=== PATIENT | male | born 1990 | race Caucasian/White ===

== ENCOUNTER 2017-11-19 18:24 | Emergency (ER) | payer BC ==
[2017-11-19 18:24] VITALS: BP 104/61
--- NOTE | 2017-11-19 19:07 | ED.ADGEN ---
Past History Past Medical History: Seizure, Other Adult General Chief Complaint Chief Complaint " His brother stated he had another grand mal seizure... he had the flu or a cold. .. probably got dehydrated.." ( Mother, Father) "I ve been feeling under the weather.. cold the last few days..." HPI HPI Patient is a 27 year old male who presents with above hx and complaints seizure disorder . Pt. had a onset of a tonic-clonic seizure that lasted few minutes at home. No prolonged post ictal phase. Patient reportedly near his baseline per his parents. Patient has had seizures since age 17. No etiology ever found with multiple CTs and MRIs and workup. Patient is to reportedly on Depakote for seizure suppression. Patient works as a cook at [employer]. Patient denies any recent drug use. Patient does report upper respiratory congestion and rhinorrhea and generalized malaise from cold symptoms. Please episode of seizures as always been associated with dehydration. Patient denies any trauma. Patient denies any travel. Patient denies any specific ill contacts. Patient did not get a flu vaccination this year. Patient does not follow regularly with her primary care. Reportedly patient has not had a seizure in over 6-8 months. Most seizures are occur at bedtime or while he is sleeping. Patient does have history of previous IV drug use. Patient currently denies current illicit drug usage Review of Systems Review of Systems Constitutional: Subjective history fever or chills [] Eyes: Denies change in visual acuity, redness, or eye pain [] HENT: Denies nasal congestion or sore throat [] Respiratory: Denies cough or shortness of breath [] Cardiovascular: No additional information not addressed in HPI [] GI: Denies abdominal pain,vomiting, bloody stools or diarrhea []complaints of nausea : Denies dysuria or hematuria [] Musculoskeletal: Denies back pain or joint pain [] Integument: Denies rash or skin lesions [] Neurologic: Denies headache, focal weakness or sensory changes, history of tonic clonic seizure described brother Endocrine: Denies polyuria or polydipsia [] All other systems were reviewed and found to be within normal limits, except as documented in this note. Family History Family History Noncontributory Current Medications Current Medications Current Medications Medications (Trade) Dose Ordered Sig/Erika Start Time Stop Time Status Last Admin Dose Admin Divalproex Sodium (Depakote Er) 1,000 mg QHS 11/19/17 21:30 11/20/17 01:05 DC 11/19/17 21:30 1,000 MG Lorazepam (Ativan) 2 mg 1X ONCE 11/19/17 19:15 11/19/17 19:51 DC 11/19/17 19:14 2 MG Ondansetron HCl (Zofran) 8 mg 1X ONCE 11/19/17 19:15 11/19/17 19:51 DC 11/19/17 20:05 8 MG Sodium Chloride 1,000 ml @ 2,000 mls/hr Q30M 11/19/17 20:00 11/19/17 20:29 DC 11/19/17 19:59 2,000 MLS/HR Allergies Allergies Allergies Coded Allergies Type Severity Reaction Last Updated Verified No Known Drug Allergies 11/19/17 No Physical Exam Physical Exam Constitutional: Well developed, well nourished, no acute distress, non-toxic appearance. [] HENT: Normocephalic, atraumatic, bilateral external ears normal, oropharynx dry , no oral exudates, nose turbinate congestion and some mild rhinorrhea.. No tongue lacerations. TMs clear. Eyes: PERRLA, EOMI, conjunctiva normal, no discharge. [] Neck: Normal range of motion, no tenderness, supple, no stridor. [] Cardiovascular:Heart rate regular rhythm, no murmur [] Lungs & Thorax: Bilateral breath sounds equal with scattered wheezes on auscultation [] Abdomen: Bowel sounds normal, soft, no tenderness, no masses, no pulsatile masses. [] Skin: Warm, dry, no erythema, no rash. Multiple tattoos. Tattoos guns on abdomen Back: No tenderness, no CVA tenderness. [] Extremities: No tenderness, no cyanosis, no clubbing, ROM intact, no edema. [] Neurologic: Alert and oriented X 3, normal motor function, normal sensory function, no focal deficits noted. DTRs are +2 at brachial and patella. Distal sensation intact. Fundus exams are benign. Right-hand dominant. [facility] equal. No drift. Patient ambulatory without problems. Psychologic: Affect normal, judgement normal, mood normal. [] Current Patient Data Vital Signs Vital Signs Date Time Temp Pulse Resp B/P (MAP) Pulse Ox O2 Delivery O2 Flow Rate FiO2 11/19/17 18:24 97.9 80 18 99 Lab Results Laboratory Tests Test 11/19/17 19:08 11/19/17 19:38 Lactic Acid Level 1.2 mmol/L (0.4-2.0) White Blood Count 12.5 x10^3/uL (4.0-11.0) H Red Blood Count 5.14 x10^6/uL (4.30-5.70) Hemoglobin 14.7 g/dL (13.0-17.5) Hematocrit 43.8 % (39.0-53.0) Mean Corpuscular Volume 85 fL (79-100) Mean Corpuscular Hemoglobin 29 pg (25-35) Mean Corpuscular Hemoglobin Concent 34 g/dL (31-37) Red Cell Distribution Width 14.1 % (11.5-14.5) Platelet Count 235 x10^3/uL (140-400) Neutrophils (%) (Auto) 82 % (31-73) H Lymphocytes (%) (Auto) 11 % (24-48) L Monocytes (%) (Auto) 7 % (0-9) Eosinophils (%) (Auto) 0 % (0-3) Basophils (%) (Auto) 0 % (0-3) Neutrophils # (Auto) 10.2 x10^3uL (1.8-7.7) H Lymphocytes # (Auto) 1.4 x10^3/uL (1.0-4.8) Monocytes # (Auto) 0.9 x10^3/uL (0.0-1.1) Eosinophils # (Auto) 0.0 x10^3/uL (0.0-0.7) Basophils # (Auto) 0.0 x10^3/uL (0.0-0.2) Erythrocyte Sedimentation Rate 1 (0-15) Prothrombin Time 11.0 SEC (9.4-11.4) Prothrombin Time INR 1.1 (0.9-1.1) PTT 21 SEC (23-33) L Sodium Level 144 mmol/L (136-145) Potassium Level 4.9 mmol/L (3.5-5.1) Chloride Level 106 mmol/L (98-107) Carbon Dioxide Level 30 mmol/L (21-32) Anion Gap 8 (6-14) Blood Urea Nitrogen 16 mg/dL (8-26) Creatinine 0.8 mg/dL (0.7-1.3) Estimated GFR (Cockcroft-Gault) 116.0 Glucose Level 85 mg/dL (70-99) Calcium Level 9.4 mg/dL (8.5-10.1) Magnesium Level 2.2 mg/dL (1.8-2.4) Total Bilirubin 0.5 mg/dL (0.2-1.0) Direct Bilirubin 0.1 mg/dL (0.0-0.2) Aspartate Amino Transferase (AST) 27 U/L (15-37) Alanine Aminotransferase (ALT) 24 U/L (16-63) Alkaline Phosphatase 35 U/L (46-116) L Total Protein 8.0 g/dL (6.4-8.2) Albumin 4.6 g/dL (3.4-5.0) Valproic Acid Level < 3 mcg/mL (50-100) L Valproic Acid Last Dose Date Unknown Valproic Acid Last Dose Time Unknown Ethyl Alcohol Level < 10 mg/dL (0-10) Influenza Type A (Rapid) Negative (NEGATIVE) Influenza Type B (Rapid) Negative (NEGATIVE) EKG EKG My interpretation of EKG shows a sinus rhythm at 82 bpm. No acute morphology appreciated.[] Radiology/Procedures Radiology/Procedures Discussed risks and benefits of CT with patient and parents.. Will hold CT for now since previous CTs and MRIs have been negative and minimal neuro changes on presentation.[] Course & Med Decision Making Course & Med Decision Making Pertinent Labs and Imaging studies reviewed. (See chart for details). Patient elects to be discharged home. Patient will restart his Depakote dosages. Patient to follow-up with neurology and primary care. Patient encouraged to stop smoking. Patient return if any concerns. Note patient declined to give urine during ED visit. At discharge parents state patient has returned to baseline. [] Final Impression Final Impression 1. Seizure[] 2. Leukocytosis 3. Viral syndrome 4. Dehydration 5. Noncompliance with seizure meds Problems: Dragon Disclaimer Dragon Disclaimer This electronic medical record was generated, in whole or in part, using a voice recognition dictation system. SHIRA BEST MD Nov 19, 2017 19:07
[2017-11-19] MEDS ORDERED: DIVALPROEX ER 500 MG TAB.ER.24H PO STA (19:15)
[2017-11-19] MEDS ORDERED: LORazepam 1 MG TABLET PO ONE (19:15)
[2017-11-19] MEDS ORDERED: ONDANSETRON PF 4 MG/2 ML VIAL. IV ONE (19:15)
[2017-11-19] MEDS ORDERED: IV NORMAL SALINE 1,000ML 1,000 ML IV SCH (20:00)
[2017-11-19 20:11] LABS: BASO % 0 % (0-3); EOS % 0 % (0-3); HEMATOCRIT 43.8 % (39.0-53.0); HEMOGLOBIN 14.7 g/dL (13.0-17.5); LYMPH # 1.4 x10^3/uL (1.0-4.8); LYMPH % 11 % (24-48); MEAN CORPUSCULAR HEMOGLOBIN 29 pg (25-35); MEAN CORPUSCULAR HGB CONC 34 g/dL (31-37); MEAN CORPUSCULAR VOLUME 85 fL (79-100); MONO # 0.9 x10^3/uL (0.0-1.1); MONO % 7 % (0-9); NEUT # 10.2 x10^3uL (1.8-7.7); NEUT % 82 % (31-73); PLATELET COUNT 235 x10^3/uL (140-400); RED BLOOD COUNT 5.14 x10^6/uL (4.30-5.70); RED CELL DISTRIBUTION WIDTH 14.1 % (11.5-14.5); WHITE BLOOD COUNT 12.5 x10^3/uL (4.0-11.0)
[2017-11-19 20:32] LABS: ALBUMIN 4.6 g/dL (3.4-5.0); ALK PHOS 35 U/L (46-116); ALT (SGPT) 24 U/L (16-63); ANION GAP 8 (6-14); AST (SGOT) 27 U/L (15-37); BLOOD UREA NITROGEN 16 mg/dL (8-26); CALCIUM 9.4 mg/dL (8.5-10.1); CARBON DIOXIDE 30 mmol/L (21-32); CHLORIDE 106 mmol/L (98-107); CREATININE 0.8 mg/dL (0.7-1.3); GLUCOSE 85 mg/dL (70-99); MAGNESIUM 2.2 mg/dL (1.8-2.4); POTASSIUM 4.9 mmol/L (3.5-5.1); SODIUM 144 mmol/L (136-145); TOTAL BILIRUBIN 0.5 mg/dL (0.2-1.0)
[2017-11-19 20:33] LABS: DIRECT BILIRUBIN 0.1 mg/dL (0.0-0.2); VAL ACID < 3 mcg/mL (50-100)
[2017-11-19 20:41] LABS: INFLUENZA A PATIENT NEGATIVE (NEGATIVE); INFLUENZA B PATIENT NEGATIVE (NEGATIVE)
[2017-11-19] MEDS ORDERED: DIVA500T2 PO (21:22)
[2017-11-19] MEDS ORDERED: DIVALPROEX ER 500 MG TAB.ER.24H PO SCH (21:30)
[2017-11-19 21:43] LABS: SEDIMENTATION RATE 1 (0-15)
--- NOTE | 2017-11-20 07:12 | EKG ---
[address] [address] Test Date: 2017-11-19 Test Time: 19:21:42 Pat Name: YANDY BAKER Department: Room: Gender: M Medical Transcription: ELVIE : 1990 Requested By: SHIRA BEST Order Number: [id number] Reading MD: Alvarez Schafer MD Measurements Intervals [place] Rate: 82 P: 72 [place]: 148 QRS: 81 QRSD: 96 T: 36 QT: 330 QTc: 388 Interpretive Statements SINUS RHYTHM Electronically Signed On 11-20-2017 10:14:09 [employer] by Alvarez Schafer MD
== END 2017-11-19 22:35 | disposition home or self-care (01) ==
LOC: ER 18:24
DX: G40.409 Other generalized epilepsy and epileptic syndromes, not intractable, without status epilepticus (principal); D72.829 Elevated white blood cell count, unspecified; B34.9 Viral infection, unspecified; E86.0 Dehydration; Z91.14 Patient's other noncompliance with medication regimen
CPT/HCPCS: 36415; 80048; 80076; 80164; 83605; 83735; 85025; 85610; 85651; 85730; 87804; 93005; 96374; 99285; G0480; J2405; J7030